=== PATIENT | male | born 1995 | race Caucasian/White ===

== ENCOUNTER 2024-08-28 10:58 | Emergency (ER) | payer OTHER ==
[~2024-08-28] VITALS: Ht 182.9 cm; Wt 95.5 kg
[2024-08-28] MEDS ORDERED: CYCL-707 PO (11:08)
[2024-08-28] MEDS: predniSONE 20 MG TAB PO ONE (16:27)
[2024-08-28] MEDS: methocarbamoL 750 MG TAB PO ONE (16:27)
[2024-08-28] MEDS ORDERED: PRED10TA2 PO (17:14)
[2024-08-28] MEDS ORDERED: METH-1165 PO (17:14)
[2024-08-28 17:22] VITALS: BP 128/77; TEMP 97.6; O2SAT 99
== END 2024-08-28 17:23 | disposition home or self-care (01) ==
LOC: M ED 10:58
DX: S16.1XXA Strain of muscle, fascia and tendon at neck level, initial encounter (principal); Y92.019 Unspecified place in single-family (private) house as the place of occurrence of the external cause; Y93.H1 Activity, digging, shoveling and raking; Y99.9 Unspecified external cause status; Z79.52 Long term (current) use of systemic steroids; Z79.899 Other long term (current) drug therapy
CPT/HCPCS: 72125; 99283; J7512